=== PATIENT | female | born 1945 | race Caucasian/White ===

== ENCOUNTER 2017-02-01 15:12 | Emergency (ER) | payer MEDICARE, OTHER ==
[~2017-02-01 15:12] MED LIST: Sodium Chloride 0.9% 1,000 ML BAG ONE
[2017-02-01] MEDS ORDERED: Ondansetron HCl/PF 4 MG/2 ML Vial ONE (15:44)
[2017-02-01] MEDS ORDERED: Pantoprazole 40 MG VIAL ONE (15:44)
[2017-02-01] MEDS ORDERED: Ketorolac Tromethamine 30 MG/ML VIAL ONE (15:44)
[2017-02-01 15:50] LABS: #Basophils 0.1 thou/uL (0.0-0.2); #Eosinphils 0.3 thou/uL (0.0-0.7); #Lymphocytes 1.8 thou/uL (1.20-3.40); #Monocytes 0.7 thou/uL (0.11-0.59); #Neutrophils 3.3 thou/uL (1.40-6.50); %Basophils 1.5 % (0.0-1.0); %Eosinophils 4.9 % (0.0-10.0); %Lymphocytes 29.7 % (21.0-51.0); %Monocytes 11.2 % (0.0-10.0); %Neutrophils 52.7 % (42.0-75.0); Hemoglobin 11.8 g/dL (12.0-16.0); Mean Corpuscular HGB CONC 30.2 g/dL (32.0-36.0); Mean Corpuscular Hemoglobin 25.9 pg (27.0-31.0); Mean Corpuscular Volume 85.8 fl (81.0-99.0); Mean Platelet Volume 9.1 fL (7.4-10.4); Platelet Count 253 thou/uL (130-400); RBC Distribution Width 17.4 % (11.5-14.5); Red Blood Cell (RBC) Count 4.57 mill/uL (4.20-5.40); White Blood Cell (WBC) Count 6.2 thou/uL (4.8-10.8)
[2017-02-01 16:01] LABS: Bilirubin Negative (Negative); Blood, Urine Trace (Negative); Glucose, Urine (Dipstick) Negative (Negative); Leukocyte Negative (Negative); Nitrite Negative (Negative); Protein, Urine (Dipstick) Negative (Neg-Trace); Urobilinogen 0.2 mg/dL (0.2-1.0); pH, Urine 5.5 (5.0-9.0)
[2017-02-01 16:02] LABS: Clarity Hazy (Clear); WBC/HPF 0-3 HPF (0-3)
[2017-02-01 16:03] LABS: Bacteria/HPF Rare-Few HPF (None Seen)
[2017-02-01 16:05] LABS: ALT (SGPT) 22 U/L (8-55); AST (SGOT) 20 U/L (5-34); Alkaline Phosphatase 122 U/L (40-150); Anion Gap 14 mmol/L (10-20); BUN (Urea Nitrogen) 12 mg/dL (9.8-20.1); Bilirubin, Total 0.4 mg/dL (0.2-1.2); Calc. Creatinine Clearance 0 mL/min (70-130); Calcium 9.6 mg/dL (7.8-10.44); Carbon Dioxide 24 mmol/L (23-31); Chloride 108 mmol/L (98-107); Estimated GFR-MDRD 69; Globulin 3.5 g/dL (2.4-3.5); Glucose 121 mg/dL (83-110); Lipase 40 U/L (8-78); Potassium 3.3 mmol/L (3.5-5.1); Protein, Total 7.5 g/dL (6.0-8.3); Sodium 143 mmol/L (136-145)
--- NOTE | 2017-02-01 16:12 | CT ---
CT ABDOMEN AND PELVIS WITHOUT IV CONTRAST: Date: 02/01/17 Multiple axial tomograms obtained through abdomen and pelvis without IV enhancement. HISTORY: Abdominal pain. FINDINGS: Images through the lung bases reveal a large fixed diaphragmatic hernia. Large portion of the stomach is fixed above the diaphragm. There are numerous cystic lesions seen in the liver. A cyst in superior left lobe abutting the diaphr agm measures 5.5 cm. There is a medial right lobe cyst measuring 4.7 cm, and there are two other smal ler right lobe cysts measuring approximately 2.5 cm. Spleen unremarkable. Pancreas unremarkable. Questionable density seen in the dependent portion of the gallbladder could potentially represent tin y gallstones or sludge. Consider correlation with gallbladder ultrasound. Adrenal glands appear normal. Kidneys unremarkable. There is no hydronephrosis. Urinary bladder is contracted and not well evaluate d. There is an anterior abdominal wall hernia at the umbilicus. A loop of small bowel herniates through this abdominal wall defect and there appears to be slight dilatation of the small bowel loops proxima l to this herniated loop. The distal small bowel loops are normal caliber. The appendix is not defini tely identified due to nonopacification of bowel and lack of IV contrast. Images through the pelvis reveal a prominent uterus for age. This may be due to uterine fibroids, alt marilee these are not confirmed by CT. Consider correlation with pelvic ultrasound. Aorta is normal caliber. No adenopathy. IMPRESSION: 1. There is an anterior abdominal wall hernia at the umbilicus. A loop of small bowel herniates into this defect and there is suggestion of entrapment with mild small bowel obstruction. This may be the etiology of patient's abdominal pain. 2. Question density in the gallbladder. Consider correlation with gallbladder ultrasound. 3. Prominent uterus for age. Recommend elective pelvic ultrasound. 4. Numerous hepatic cysts. 5. A large, fixed diaphragmatic hernia. Large portion of the stomach is fixed above the diaphragm. POS: [facility]
== END 2017-02-01 17:00 | disposition short-term general hospital (02) ==
LOC: MADERS 15:12
DX: K42.0 Umbilical hernia with obstruction, without gangrene (principal)
CPT/HCPCS: 74176; 80053; 81003; 81015; 83690; 85025; 96361; 96374; 96375; C9113; J1885; J2405; J7050

== ENCOUNTER 2023-07-11 08:22 | Emergency (ER) | payer MEDICARE ==
[2023-07-11 09:03] LABS: Bilirubin Negative (Negative); Blood, Urine Moderate (Negative); Clarity Clear (Clear); Glucose, Urine (Dipstick) Negative (Negative); Ketone, Urine Negative (Negative); Leukocyte Trace (Negative); Nitrite Negative (Negative); Protein, Urine (Dipstick) Negative (Neg-Trace); Urobilinogen 0.2 mg/dL (Less than 2)
[2023-07-11] MEDS ORDERED: Sodium Chloride 0.9% 500 ML ONE (09:05)
[2023-07-11] MEDS ORDERED: Ketorolac Tromethamine 30 MG (1 mL) VIAL ONE (09:05)
[2023-07-11 09:09] LABS: Bacteria/HPF Rare-Few HPF (None Seen); CAUTI Indications for Culture Pelvic or flank pain; RBC/HPF 0-3 HPF (0-3); Squamous Epithelial 0-3 HPF (0-3); WBC/HPF 0-3 HPF (0-3)
[2023-07-11 09:10] LABS: Calcium Oxalate Crystals 1+ HPF (None Seen); Urine Culture Reflex No No
[2023-07-11 09:30] LABS: #Basophils 0.1 thou/uL (0.0-0.2); #Lymphocytes 1.5 thou/uL (1.20-3.40); #Monocytes 0.7 thou/uL (0.11-0.59); #Neutrophils 4.4 thou/uL (1.40-6.50); %Basophils 1.3 % (0.0-1.0); %Eosinophils 0.6 % (0.0-10.0); %Lymphocytes 22.6 % (21.0-51.0); %Monocytes 9.6 % (0.0-10.0); %Neutrophils 65.8 % (42.0-75.0); Hematocrit 47.5 % (36.0-47.0); Hemoglobin 14.3 g/dL (12.0-16.0); Mean Corpuscular HGB CONC 30.1 g/dL (32.0-36.0); Mean Corpuscular Hemoglobin 29.2 pg (27.0-31.0); Mean Corpuscular Volume 97.1 fl (78.0-98.0); Mean Platelet Volume 9.1 fL (7.4-10.4); Platelet Count 183 10x3/uL (130-400); RBC Distribution Width 13.7 % (11.5-14.5); Red Blood Cell (RBC) Count 4.89 mill/uL (4.20-5.40); White Blood Cell (WBC) Count 6.7 10x3/uL (4.8-10.8)
[2023-07-11 09:41] LABS: ALT (SGPT) 39 U/L (8-55); AST (SGOT) 27 U/L (5-34); Albumin 4.2 g/dL (3.4-4.8); Alkaline Phosphatase 123 U/L (40-110); Anion Gap 14 mmol/L (10-20); BUN (Urea Nitrogen) 17 mg/dL (9.8-20.1); Bilirubin, Total 0.8 mg/dL (0.2-1.2); Calc. Creatinine Clearance 0 mL/min (70-130); Calcium 10.1 mg/dL (7.8-10.44); Carbon Dioxide 21 mmol/L (23-31); Chloride 110 mmol/L (98-107); Estimated GFR 50; Globulin 3.4 g/dL (2.4-3.5); Glucose 105 mg/dL (83-110); Potassium 3.7 mmol/L (3.5-5.1); Protein, Total 7.6 g/dL (5.8-8.1); Sodium 141 mmol/L (136-145)
== END 2023-07-11 10:18 | disposition home or self-care (01) ==
LOC: MADERS 08:22
DX: N13.2 Hydronephrosis with renal and ureteral calculous obstruction (principal); N17.9 Acute kidney failure, unspecified; K44.9 Diaphragmatic hernia without obstruction or gangrene; K76.89 Other specified diseases of liver; N83.291 Other ovarian cyst, right side; E78.00 Pure hypercholesterolemia, unspecified; Z79.82 Long term (current) use of aspirin; Z79.899 Other long term (current) drug therapy
CPT/HCPCS: 74176; 80053; 81001; 85025; 96374; J1885; J7030